=== PATIENT | female | born 1990 | race Asian ===

== ENCOUNTER 2018-12-13 17:56 | Emergency (ER) | payer BC ==
[~2018-12-13] VITALS: Ht 170.2 cm; Wt 49.9 kg
[2018-12-13] MEDS ORDERED: ORPHENADRINE 60 MG/2 ML (NORFLEX) AMP ONE (18:26)
[2018-12-13] MEDS ORDERED: KETOROLAC 30 MG/ML VIAL ONE (18:26)
[2018-12-13] MEDS ORDERED: KETOROLAC 30 MG/ML VIAL IVP STA (18:29)
[2018-12-13] MEDS ORDERED: ORPHENADRINE 60 MG/2 ML (NORFLEX) AMP IV STA (18:29)
--- NOTE | 2018-12-13 18:29 | ED EENT ---
History of Present Illness General Chief Complaint: Dental Problems/Pain Stated Complaint: UNABLE TO CLOSE JAW Nursing Triage Note: Patient advises at approximately 1715 she began experiencing pain in her jaw and is unable to close her mouth. She advises this occurred approximately 3-4 years ago but resolved on its own. Source: patient, family History of Present Illness Date Seen by Provider: Dec 13, 2018 Time Seen by Provider: 18:19 Initial Comments PT ARRIVES VIA POV WAS WALKING OUTSIDE AND OPENED HER MOUTH AND COUGHED AND NOW SHE CANNOT CLOSE HER MOUTH--OCCURRED AROUND 1715 TODAY C/O MUCH PAIN IN BOTH JAWS/TMJ AREAS HAS HISTORY OF SAME 3-4 YEARS AGO, BUT RESOLVED ON IT'S OWN NO PCP PT IS STUDENT AT [facility] [facility] [facility] IN [place], [place] Allergies and Home Medications Allergies Coded Allergies: No Known Drug Allergies (Unverified , 12/13/18) Patient Home Medication List Home Medication List Reviewed: Yes Review of Systems Review of Systems Constitutional: no symptoms reported Eyes: No Symptoms Reported Ears: No Symptoms Reported Nose: no symptoms reported Mouth: see HPI Throat: no symptoms reported Respiratory: no symptoms reported Cardiovascular: no symptoms reported : No (HAS VERY HEAVY PERIODS) Musculoskeletal: no symptoms reported Skin: no symptoms reported Neurological: No Symptoms Reported Hematologic/Lymphatic: No Symptoms Reported Immunological/Allergic: no symptoms reported Past Skgxqvb-Sohlsm-Rdsikg Hx Patient Social History Alcohol Use: Denies Use Recreational Drug Use: No Smoking Status: Never a Smoker Recent Foreign Travel: No Contact w/Someone Who Travel: No Recent Infectious Disease Expo: No Recent Hopitalizations: No Seasonal Allergies Seasonal Allergies: No Past Medical History Surgeries: No Respiratory: No Cardiac: No Neurological: No Genitourinary: No Gastrointestinal: No Musculoskeletal: No Endocrine: No HEENT: No Cancer: No Psychosocial: No Integumentary: No Blood Disorders: No Physical Exam Vital Signs Vital Signs - First Documented 12/13/18 18:09 Temp 97.4 Pulse 92 Resp 14 B/P (MAP) 110/67 (81) Pulse Ox 100 O2 Delivery Room Air Height, Weight, BMI Height: 5'7.00" Weight: 110lbs. oz. 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, no motor/sensory deficits, alert, oriented x 3 Skin: normal color, warm/dry Procedures/Interventions Dental Procedures: TMJ, Reduction w/o anes (GIVEN FENTANYL + ATIVAN 1 MG + TORADOL + NORFLEX; EASILY REDUCED WITH GENTLE TRACTION) Progress/Results/Core Measures Results/Orders Lab Results Laboratory Tests Test 12/13/18 18:25 12/13/18 18:35 Range/Units Serum Test, Qualitative NEGATIVE NEGATIVE White Blood Count 7.3 4.3-11.0 10^3/uL Red Blood Count 4.95 4.35-5.85 10^6/uL Hemoglobin 7.9 L 11.5-16.0 G/DL Hematocrit 27 L 35-52 % Mean Corpuscular Volume 55 L 80-99 FL Mean Corpuscular Hemoglobin 16 L 25-34 PG Mean Corpuscular Hemoglobin Concent 29 L 32-36 G/DL Red Cell Distribution Width 23.3 H 10.0-14.5 % Platelet Count 493 H 130-400 10^3/uL Mean Platelet Volume 9.3 7.4-10.4 FL Neutrophils (%) (Auto) 48 42-75 % Lymphocytes (%) (Auto) 43 12-44 % Monocytes (%) (Auto) 6 0-12 % Eosinophils (%) (Auto) 3 0-10 % Basophils (%) (Auto) 0 0-10 % Neutrophils # (Auto) 3.5 1.8-7.8 X 10^3 Lymphocytes # (Auto) 3.1 1.0-4.0 X 10^3 Monocytes # (Auto) 0.5 0.0-1.0 X 10^3 Eosinophils # (Auto) 0.2 0.0-0.3 10^3/uL Basophils # (Auto) 0.0 0.0-0.1 10^3/uL Sodium Level 136 135-145 MMOL/L Potassium Level 3.8 3.6-5.0 MMOL/L Chloride Level 107 98-107 MMOL/L Carbon Dioxide Level 19 L 21-32 MMOL/L Anion Gap 10 5-14 MMOL/L Blood Urea Nitrogen 12 7-18 MG/DL Creatinine 0.66 0.60-1.30 MG/DL Estimat Glomerular Filtration Rate > 60 BUN/Creatinine Ratio 18 Glucose Level 103 70-105 MG/DL Calcium Level 8.7 8.5-10.1 MG/DL Corrected Calcium 8.7 8.5-10.1 MG/DL Total Bilirubin 0.3 0.1-1.0 MG/DL Aspartate Amino Transf (AST/SGOT) 20 5-34 U/L Alanine Aminotransferase (ALT/SGPT) 17 0-55 U/L Alkaline Phosphatase 46 40-136 U/L Total Protein 7.0 6.4-8.2 GM/DL Albumin 4.0 3.2-4.5 GM/DL My Orders Orders - FE ROMANO DO Saline Lock/Iv-Start (12/13/18 18:24) Cbc With Automated Diff (12/13/18 18:24) Comprehensive Metabolic Panel (12/13/18 18:24) Ct Maxillofacial Wo (12/13/18 18:24) Ketorolac Injection (Toradol Injection) (12/13/18 18:29) Orphenadrine Injection (Norflex Injectio (12/13/18 18:29) Ketorolac Injection (Toradol Injection) (12/13/18 18:26) Orphenadrine Injection (Norflex Injectio (12/13/18 18:26) Hcg,Qualitative Serum (12/13/18 18:48) Fentanyl Injection (Sublimaze Injection (12/13/18 19:04) Fentanyl Injection (Sublimaze Injection (12/13/18 20:00) Lorazepam Injection (Ativan Injection) (12/13/18 20:00) Medications Given in ED Current Medications Medications Dose Ordered Sig/Yeni Route Start Time Stop Time Status Last Admin Dose Admin Lorazepam 1 mg ONCE ONCE IVP 12/13/18 20:00 12/13/18 20:03 DC 12/13/18 20:14 1 MG Vital Signs/I&O 12/13/18 2 18:09 20:15 Temp 97.4 Pulse 92 91 Resp 14 16 B/P (MAP) 110/67 (81) 112/63 (79) Pulse Ox 100 100 O2 Delivery Room Air Room Air Blood Pressure Mean: [address] MAXILLOFACIALS--ANTERIOR DISLOCATION OF TMJ JOINTS--RIGHT SLIGHTLY GREATER THAN LEFT, NO FRACTURE. PER RADIOLOGIST REPORT AT 2020. Departure Impression Primary Impression: Dislocation of both temporomandibular joints Additional Impression: Anemia Disposition: HOME, SELF-CARE Condition: Improved Departure-Patient Inst. Referrals: NO,LOCAL PHYSICIAN (PCP/Family) Primary Care Physician Patient Instructions: Anemia Caused by Low Iron, Adult (DC), Pureed Diet, Temporomandibular Joint (TMJ) Disorders (DC) Add. Discharge Instructions: SOFT FOODS FOR THE NEXT 3 DAYS. NO CHEWING. AVOID OPENING MOUTH WIDELY TYLENOL AND MOTRIN NEEDED FOR PAIN TAKE MULTIVITAMIN WITH IRON DAILY TAKE COLACE STOOL SOFTENER--UP TO 4 PILLS A DAY NEEDED FOR CONSTIPATION FROM IRON SUPPLEMENT FOLLOW UP WITH DR OF CHOICE NEXT WEEK TO RECHECK ANEMIA RETURN TO ER IF SYMPTOMS RETURN All discharge instructions reviewed with patient and/or family. Voiced understanding. FE ROMANO DO Dec 13, 2018 18:29
[2018-12-13 18:45] LABS: BASOPHILS % (AUTO) 0 % (0-10); EOSINOPHILS # (AUTO) 0.2 10^3/uL (0.0-0.3); EOSINOPHILS % (AUTO) 3 % (0-10); HEMATOCRIT 27 % (35-52); HEMOGLOBIN 7.9 G/DL (11.5-16.0); LYMPHOCYTES # (AUTO) 3.1 X 10^3 (1.0-4.0); LYMPHOCYTES % (AUTO) 43 % (12-44); MEAN CORPUSCULAR HEMOGLOBIN 16 PG (25-34); MEAN CORPUSCULAR HGB CONC 29 G/DL (32-36); MEAN CORPUSCULAR VOLUME 55 FL (80-99); MEAN PLATELET VOLUME 9.3 FL (7.4-10.4); MONOCYTES # (AUTO) 0.5 X 10^3 (0.0-1.0); MONOCYTES % (AUTO) 6 % (0-12); NEUTROPHILS # (AUTO) 3.5 X 10^3 (1.8-7.8); NEUTROPHILS % (AUTO) 48 % (42-75); PLATELET COUNT 493 10^3/uL (130-400); RED CELL DISTRIBUTION WIDTH 23.3 % (10.0-14.5); WHITE BLOOD COUNT 7.3 10^3/uL (4.3-11.0)
[2018-12-13 19:01] LABS: ALANINE AMINOTRANSFERASE 17 U/L (0-55); ALKALINE PHOSPHATASE 46 U/L (40-136); BILIRUBIN,TOTAL 0.3 MG/DL (0.1-1.0); BUN/CREATININE RATIO 18; CALCIUM 8.7 MG/DL (8.5-10.1); CARBON DIOXIDE 19 MMOL/L (21-32); CHLORIDE 107 MMOL/L (98-107); CREATININE SERUM 0.66 MG/DL (0.60-1.30); GFR ESTIMATED > 60; GLUCOSE 103 MG/DL (70-105); POTASSIUM 3.8 MMOL/L (3.6-5.0); SODIUM 136 MMOL/L (135-145)
[2018-12-13] MEDS ORDERED: fentaNYL INJECTION 100 MCG/2 ML AMP IVP STA ×2 (19:04→20:00)
[2018-12-13] MEDS ORDERED: LORazepam INJ 2 MG/ML (ATIVAN) VIAL IVP ONE (20:00)
--- NOTE | 2018-12-13 20:12 | Diagnostic Imaging Report ---
PROCEDURE: CT maxillofacial without contrast. TECHNIQUE: Multiple contiguous axial images were obtained through the facial bones without the use of intravenous contrast. INDICATION: Pain in the jaw, unable to close mouth. EXAMINATION: CT maxillofacial dated 12/13/2018 COMPARISONS: None FINDINGS: The right temporomandibular joint appears dislocated with the mandibular condyle dislocated anteriorly. Similar findings to a lesser degree noted on the left. No actual fracture lines appreciated. Soft tissues unremarkable. Visualized sinuses demonstrate no acute abnormalities. IMPRESSION: 1. Anterior dislocation of the temporomandibular joints as described, right slightly worse than left. Dictated by: Dictated on workstation # [id number]
[2018-12-13 20:15] VITALS: BP 112/63
--- NOTE | 2018-12-13 20:17 | NUR ---
jaw reduced by dr koroma without difficulty.
[2018-12-13 20:30] VITALS: BP 114/69
== END 2018-12-13 20:31 | disposition home or self-care (01) ==
LOC: ER 17:58
DX: S03.00XA Dislocation of jaw, unspecified side, initial encounter (principal); D64.9 Anemia, unspecified; X50.0XXA Overexertion from strenuous movement or load, initial encounter
CPT/HCPCS: 36415; 70486; 80053; 84703; 85025